=== PATIENT | male | born 1945 | race Caucasian/White ===

== ENCOUNTER 2022-04-15 01:00 | Inpatient (IN) | payer BC ==
[~2022-04-15] VITALS: Ht 152.4 cm; Wt 49.4 kg
[2022-04-15] VITALS (30 sets, daily range): BP systolic 67–162
[2022-04-15 01:51] LABS: BASOPHILS % (AUTO) 0.3 % (0.0-2.0); EOSINOPHILS % (AUTO) 0.1 % (0.0-4.0); LYMPHOCYTES # (AUTO) 1.1 K/uL (1.0-5.5); LYMPHOCYTES % (AUTO) 6.3 % (20.5-51.5); MEAN CORPUSCULAR HEMOGLOBIN 27 pg (27-31); MEAN CORPUSCULAR HGB CONC 32 % (32-36); MEAN CORPUSCULAR VOLUME 86 fL (79.0-98.0); MONOCYTES # (AUTO) 0.5 K/uL (0.0-1.0); MONOCYTES % (AUTO) 2.9 % (1.7-9.3); NEUTROPHILS % (AUTO) 90.4 % (40.0-70.0); PLATELET COUNT (AUTO) 106 K/uL (130-430); RED CELL DISTRIBUTION WIDTH 17.9 % (9.0-15.0); WHITE BLOOD COUNT (AUTO) 17.7 K/uL (4.8-10.8)
[2022-04-15 01:57] LABS: ANION GAP 24 (5-15); CALCIUM 7.9 mg/dL (8.4-11.0); CHLORIDE 87 mmol/L (98-107); CREATININE 2.88 mg/dL (0.55-1.30); GLUCOSE 169 mg/dL (70-99); POTASSIUM 5.4 mmol/L (3.5-5.1); SODIUM SERUM 123 mmol/L (136-145)
[2022-04-15 02:02] LABS: ALANINE AMINOTRANSFERASE 66 U/L (12-78); ALBUMIN 1.3 g/dL (3.4-4.8); ASPARTATE AMINOTRANSFERASE 73 U/L (10-37); TOTAL BILIRUBIN 0.3 mg/dL (0.0-1.0)
[2022-04-15 02:12] LABS: UREA NITROGEN, BLOOD 188 mg/dL (8-21)
[2022-04-15 02:13] LABS: HEMATOCRIT 12.4 % (36-54); HEMOGLOBIN 3.9 g/dL (14.0-18.0); RED BLOOD CELL COUNT(AUTO) 1.45 MIL/uL (4.2-6.2)
[2022-04-15] MEDS ORDERED: NS 500 ML IV ONE ×2 (02:15→03:30)
[2022-04-15 02:16] LABS: INR 1.4 (0.80-1.20); PROTHROMBIN TIME 13.8 SECS (9.5-12.5)
[2022-04-15] MEDS ORDERED: cefTRIAXone 1 GM in D5W 50 ML IV ONE (02:30)
[2022-04-15] MEDS ORDERED: NOREPINEPHRINE 4 MG/4 ML VIAL IV ONE ×3 (03:27→22:34)
[2022-04-15] MEDS ORDERED: NOREPINEPHRINE BITARTRATE 4 MG in NS 246 ML IV ONE (03:30)
[2022-04-15] MEDS ORDERED: cefTRIAXone 1 GM VIAL ONE (03:45)
[2022-04-15] MEDS ORDERED: NALOXONE HCL 0.4 MG/ML AMP (NARCAN) IVP PRN (07:00)
[2022-04-15] MEDS ORDERED: MORPHINE 4 MG INJ. 4 MG/ML VIAL IVP PRN (07:00)
[2022-04-15] MEDS ORDERED: LORazepam 2 MG/ML VIAL IVP PRN (07:00)
[2022-04-15] MEDS ORDERED: MORPHINE 2 MG/ML INJ. SYRINGE IVP PRN (07:00)
[2022-04-15] MEDS ORDERED: ONDANSETRON HCL 4 MG/2 ML VIAL IVP PRN (07:00)
[2022-04-15] MEDS: D5/0.45 NS 1,000 ML IV SCH ×3 (07:53→19:29)
[2022-04-15] MEDS ORDERED: PANTOPRAZOLE SODIUM 40 MG/VIAL (PROTONIX) IVP SCH (09:00)
[2022-04-15] MEDS: CEFEPIME 2 GM in D5W 100 ML IV SCH (13:18)
[2022-04-15] MEDS: metroNIDAZOLE 250 mg/NS 50 ML IV SCH (15:11)
[2022-04-15] MEDS: PANTOPRAZOLE SODIUM 40 MG in NS 50 ML IV SCH ×2 (16:25→19:26)
[2022-04-15] MEDS ORDERED: cefTRIAXone 1 GM IVPB PREMIX 50 ML IV SCH (22:00)
[2022-04-16] VITALS (29 sets, daily range): BP systolic 99–157
[2022-04-16] MEDS: metroNIDAZOLE 250 mg/NS 50 ML IV SCH ×4 (00:26→21:21)
[2022-04-16] MEDS: PANTOPRAZOLE SODIUM 40 MG in NS 50 ML IV SCH ×5 (00:27→20:23)
[2022-04-16] MEDS ORDERED: NOREPINEPHRINE BITARTRATE 4 MG in NS 218 ML IV PRN (00:30)
[2022-04-16] MEDS ORDERED: NOREPINEPHRINE BITARTRATE 4 MG in D5W 246 ML IV PRN (01:00)
[2022-04-16 07:57] LABS: ALANINE AMINOTRANSFERASE 78 U/L (12-78); ALBUMIN 1.3 g/dL (3.4-4.8); ASPARTATE AMINOTRANSFERASE 86 U/L (10-37); CALCIUM 7.8 mg/dL (8.4-11.0); CREATININE 2.75 mg/dL (0.55-1.30); GLUCOSE 242 mg/dL (70-99); PHOSPHORUS 7.1 mg/dL (2.7-4.5); TOTAL BILIRUBIN 0.6 mg/dL (0.0-1.0)
[2022-04-16 08:17] LABS: BASOPHILS % (AUTO) 0.2 % (0.0-2.0); EOSINOPHILS # (AUTO) 0.1 K/uL (0.0-0.4); EOSINOPHILS % (AUTO) 0.6 % (0.0-4.0); LYMPHOCYTES % (AUTO) 5.1 % (20.5-51.5); MEAN CORPUSCULAR HEMOGLOBIN 29 pg (27-31); MEAN CORPUSCULAR HGB CONC 33 % (32-36); MEAN CORPUSCULAR VOLUME 86 fL (79.0-98.0); MONOCYTES # (AUTO) 0.4 K/uL (0.0-1.0); MONOCYTES % (AUTO) 1.8 % (1.7-9.3); NEUTROPHILS # (AUTO) 18.2 K/uL (1.8-7.7); NEUTROPHILS % (AUTO) 92.3 % (40.0-70.0); PLATELET COUNT (AUTO) 62 K/uL (130-430); RED BLOOD CELL COUNT(AUTO) 2.43 MIL/uL (4.2-6.2); RED CELL DISTRIBUTION WIDTH 16.8 % (9.0-15.0); WHITE BLOOD COUNT (AUTO) 19.7 K/uL (4.8-10.8)
[2022-04-16 08:18] LABS: ANION GAP 21 (5-15); CHLORIDE 93 mmol/L (98-107); POTASSIUM 4.6 mmol/L (3.5-5.1); SODIUM SERUM 126 mmol/L (136-145)
[2022-04-16 08:24] LABS: UREA NITROGEN, BLOOD 186 mg/dL (8-21)
[2022-04-16 08:56] LABS: C-REACTIVE PROTEIN QUANT 13.3 mg/dL (0-0.5)
[2022-04-16] MEDS ORDERED: MIDAZOLAM HCL 5 MG/5 ML VIAL ONE (09:33)
[2022-04-16] MEDS ORDERED: fentaNYL CITRATE/PF 100 MCG/2 ML AMP ONE (09:34)
[2022-04-16 09:59] LABS: HEMATOCRIT 20.8 % (36-54); HEMOGLOBIN 6.9 g/dL (14.0-18.0)
[2022-04-16] MEDS ORDERED: NACL 0.9% 1,000 ML IV SCH (10:30)
[2022-04-16] MEDS: CEFEPIME 2 GM in D5W 100 ML IV SCH (10:50)
[2022-04-16] MEDS ORDERED: D5W 1,000 ML IV PRN (11:30)
[2022-04-16] MEDS ORDERED: DEXTROSE 50%-WATER 50 ML DISP.SYRIN IVP PRN (11:30)
[2022-04-16] MEDS ORDERED: GLUCOSE (DEXTROSE) ORAL GEL -Adults PO PRN (11:30)
[2022-04-16 12:11] LABS: ERYTHROCYTE SEDIMENTATION RATE 42 MM/HR (0-15)
[2022-04-16] MEDS: INSULIN REGULAR, HUMAN 100 UNITS/ML, 10 ML VIAL (humuLIN R) SUBCUT PRN ×3 (12:32→23:44)
[2022-04-16 12:38] LABS: HEMATOCRIT 18.7 % (36-54); HEMOGLOBIN 6.3 g/dL (14.0-18.0)
[2022-04-16 14:09] LABS: BILIRUBIN,URINE NEGATIVE (NEGATIVE); BLOOD, URINE 1+ (NEGATIVE); CLARITY/URINE CLEAR (CLEAR); COLOR,URINE YELLOW (YELLOW); GLUCOSE,URINE TRACE (NEGATIVE); KETONES,URINE NEGATIVE (NEGATIVE); LEUKOCYTE ESTERASE ,URINE NEGATIVE (NEGATIVE); NITRITE, URINE NEGATIVE (NEGATIVE); PH,URINE 5.5 (5.0-8.0); PROTEIN URINE 1+ (NEGATIVE); UROBILINOGEN,URINE 0.2 (0.2-1.0)
[2022-04-16 14:41] LABS: BACTERIA,URINE RARE /HPF (None Seen); CALCIUM OXALATE CRYSTALS,UR 0-10 /HPF (None Seen); WBC,URINE 0-3 /HPF (0-3)
[2022-04-16] MEDS ORDERED: MENTHOL/ZINC OXIDE 113 GM OINT. TP PRN (15:45)
[2022-04-16] MEDS ORDERED: BALSAM PERU/CASTOR OIL 56.7 GM OINT...G. TP ONE (17:00)
[2022-04-16] MEDS ORDERED: SODIUM BICARBONATE 8.4% JECT 50 MEQ/50 ML SYRINGE ONE (19:52)
[2022-04-16] MEDS: SODIUM BICARBONATE 8.4% JECT 150 MEQ in D5W 1,000 ML IV SCH (20:18)
[2022-04-17] VITALS (29 sets, daily range): BP systolic 102–139
[2022-04-17] MEDS: PANTOPRAZOLE SODIUM 40 MG in NS 50 ML IV SCH ×5 (01:21→20:04)
[2022-04-17] MEDS: metroNIDAZOLE 250 mg/NS 50 ML IV SCH ×3 (05:45→21:56)
[2022-04-17] MEDS: INSULIN REGULAR, HUMAN 100 UNITS/ML, 10 ML VIAL (humuLIN R) SUBCUT PRN ×4 (05:48→23:32)
[2022-04-17] MEDS ORDERED: SODIUM BICARBONATE 8.4% VIAL 50 MEQ/50 ML VIAL ONE (06:00)
[2022-04-17] MEDS: SODIUM BICARBONATE 8.4% JECT 150 MEQ in D5W 1,000 ML IV SCH ×2 (06:12→18:27)
[2022-04-17 08:08] LABS: BASOPHILS % (AUTO) 0.3 % (0.0-2.0); EOSINOPHILS # (AUTO) 0.1 K/uL (0.0-0.4); EOSINOPHILS % (AUTO) 0.5 % (0.0-4.0); LYMPHOCYTES # (AUTO) 0.6 K/uL (1.0-5.5); LYMPHOCYTES % (AUTO) 5.4 % (20.5-51.5); MEAN CORPUSCULAR HEMOGLOBIN 30 pg (27-31); MEAN CORPUSCULAR HGB CONC 35 % (32-36); MEAN CORPUSCULAR VOLUME 85 fL (79.0-98.0); MONOCYTES # (AUTO) 0.3 K/uL (0.0-1.0); MONOCYTES % (AUTO) 2.8 % (1.7-9.3); RED BLOOD CELL COUNT(AUTO) 2.22 MIL/uL (4.2-6.2); RED CELL DISTRIBUTION WIDTH 15.2 % (9.0-15.0); RETICULOCYTE COUNT 0.8 % (0.5-1.5); WHITE BLOOD COUNT (AUTO) 12.1 K/uL (4.8-10.8)
[2022-04-17] MEDS: BALSAM PERU/CASTOR OIL 56.7 GM OINT...G. TP SCH (08:09)
[2022-04-17 08:18] LABS: ANION GAP 17 (5-15); CALCIUM 7.5 mg/dL (8.4-11.0); CHLORIDE 96 mmol/L (98-107); CREATININE 2.63 mg/dL (0.55-1.30); GLUCOSE 211 mg/dL (70-99); PHOSPHORUS 5.6 mg/dL (2.7-4.5); SODIUM SERUM 129 mmol/L (136-145)
[2022-04-17 08:43] LABS: UREA NITROGEN, BLOOD 193 mg/dL (8-21)
[2022-04-17 09:08] LABS: C-REACTIVE PROTEIN QUANT 12.6 mg/dL (0-0.5)
[2022-04-17 09:14] LABS: HEMATOCRIT 18.8 % (36-54); HEMOGLOBIN 6.6 g/dL (14.0-18.0); PLATELET COUNT (AUTO) 41 K/uL (130-430)
[2022-04-17] MEDS: CEFEPIME 2 GM in D5W 100 ML IV SCH (10:38)
[2022-04-17] MEDS ORDERED: PHYTONADIONE 10 MG in NS 50 ML IV ONE (14:30)
[2022-04-17 15:19] LABS: INR 1.3 (0.80-1.20); PROTHROMBIN TIME 13.3 SECS (9.5-12.5)
[2022-04-17 16:15] LABS: TOTAL IRON BIND. CAPACITY 164 ug/dL (250-450)
[2022-04-18] VITALS (30 sets, daily range): BP systolic 105–133
[2022-04-18] MEDS: PANTOPRAZOLE SODIUM 40 MG in NS 50 ML IV SCH ×5 (02:17→22:32)
[2022-04-18] MEDS: metroNIDAZOLE 250 mg/NS 50 ML IV SCH ×3 (06:07→22:20)
[2022-04-18] MEDS: SODIUM BICARBONATE 8.4% JECT 150 MEQ in D5W 1,000 ML IV SCH ×2 (06:07→20:25)
[2022-04-18 06:46] LABS: BASOPHILS % (AUTO) 0.3 % (0.0-2.0); EOSINOPHILS % (AUTO) 0.3 % (0.0-4.0); HEMATOCRIT 23.6 % (36-54); HEMOGLOBIN 8.1 g/dL (14.0-18.0); LYMPHOCYTES # (AUTO) 0.7 K/uL (1.0-5.5); LYMPHOCYTES % (AUTO) 7.8 % (20.5-51.5); MEAN CORPUSCULAR HEMOGLOBIN 28 pg (27-31); MEAN CORPUSCULAR HGB CONC 34 % (32-36); MONOCYTES # (AUTO) 0.4 K/uL (0.0-1.0); MONOCYTES % (AUTO) 4.3 % (1.7-9.3); NEUTROPHILS # (AUTO) 8.4 K/uL (1.8-7.7); NEUTROPHILS % (AUTO) 87.3 % (40.0-70.0); PLATELET COUNT (AUTO) 55 K/uL (130-430); RED BLOOD CELL COUNT(AUTO) 2.89 MIL/uL (4.2-6.2); RED CELL DISTRIBUTION WIDTH 17.4 % (9.0-15.0); WHITE BLOOD COUNT (AUTO) 9.6 K/uL (4.8-10.8)
[2022-04-18 06:53] LABS: INR 1.3 (0.80-1.20); PROTHROMBIN TIME 12.6 SECS (9.5-12.5)
[2022-04-18] MEDS: INSULIN REGULAR, HUMAN 100 UNITS/ML, 10 ML VIAL (humuLIN R) SUBCUT PRN ×3 (06:53→18:50)
[2022-04-18 07:19] LABS: MEAN CORPUSCULAR VOLUME 82 fL (79.0-98.0)
[2022-04-18] MEDS: BALSAM PERU/CASTOR OIL 56.7 GM OINT...G. TP SCH (09:00)
[2022-04-18] MEDS: CEFEPIME 2 GM in D5W 100 ML IV SCH (11:09)
[2022-04-19] MEDS: INSULIN REGULAR, HUMAN 100 UNITS/ML, 10 ML VIAL (humuLIN R) SUBCUT PRN ×2 (00:14→18:07)
[2022-04-19 01:21] VITALS: BP_SYST 112
[2022-04-19] MEDS: PANTOPRAZOLE SODIUM 40 MG in NS 50 ML IV SCH ×4 (03:57→22:06)
[2022-04-19 04:05] VITALS: BP_SYST 118
[2022-04-19] MEDS: metroNIDAZOLE 250 mg/NS 50 ML IV SCH ×3 (05:25→22:06)
[2022-04-19 07:07] LABS: FOLATE (FOLIC ACID) >20.0 ng/mL (>3.0)
[2022-04-19 07:28] LABS: BASOPHILS % (AUTO) 0.4 % (0.0-2.0); EOSINOPHILS % (AUTO) 0.4 % (0.0-4.0); HEMATOCRIT 23.6 % (36-54); HEMOGLOBIN 8.1 g/dL (14.0-18.0); LYMPHOCYTES # (AUTO) 1.2 K/uL (1.0-5.5); LYMPHOCYTES % (AUTO) 14.9 % (20.5-51.5); MEAN CORPUSCULAR HEMOGLOBIN 28 pg (27-31); MEAN CORPUSCULAR HGB CONC 35 % (32-36); MEAN CORPUSCULAR VOLUME 82 fL (79.0-98.0); MONOCYTES # (AUTO) 0.6 K/uL (0.0-1.0); MONOCYTES % (AUTO) 7.8 % (1.7-9.3); NEUTROPHILS # (AUTO) 6.1 K/uL (1.8-7.7); NEUTROPHILS % (AUTO) 76.5 % (40.0-70.0); RED CELL DISTRIBUTION WIDTH 17.4 % (9.0-15.0)
[2022-04-19 07:35] LABS: ALANINE AMINOTRANSFERASE 50 U/L (12-78); ALBUMIN 1.2 g/dL (3.4-4.8); ANION GAP 11 (5-15); ASPARTATE AMINOTRANSFERASE 60 U/L (10-37); CALCIUM 7.1 mg/dL (8.4-11.0); CHLORIDE 96 mmol/L (98-107); CREATININE 2.46 mg/dL (0.55-1.30); GLUCOSE 145 mg/dL (70-99); POTASSIUM 3.4 mmol/L (3.5-5.1); SODIUM SERUM 134 mmol/L (136-145); TOTAL BILIRUBIN 0.5 mg/dL (0.0-1.0)
[2022-04-19 07:47] LABS: UREA NITROGEN, BLOOD 166 mg/dL (8-21)
[2022-04-19 07:57] VITALS: BP_SYST 123
[2022-04-19] MEDS: BALSAM PERU/CASTOR OIL 56.7 GM OINT...G. TP SCH (09:02)
[2022-04-19] MEDS: SODIUM BICARBONATE 8.4% JECT 150 MEQ in D5W 1,000 ML IV SCH (09:02)
[2022-04-19 09:18] LABS: PLATELET COUNT (AUTO) 43 K/uL (130-430)
[2022-04-19 09:52] LABS: FERRITIN 1372 ng/mL (30-400)
[2022-04-19 11:33] VITALS: BP_SYST 107
[2022-04-19] MEDS ORDERED: KCL 10 mEq in 50 mL (PREMIX) 50 ML IV ONE (12:00)
[2022-04-19 15:57] VITALS: BP_SYST 110
[2022-04-19 20:00] VITALS: BP_SYST 117
[2022-04-20 00:53] VITALS: BP_SYST 119
[2022-04-20] MEDS: PANTOPRAZOLE SODIUM 40 MG in NS 50 ML IV SCH ×5 (02:58→21:09)
[2022-04-20] MEDS: SODIUM BICARBONATE 8.4% JECT 100 MEQ in D5W 1,000 ML IV SCH ×3 (03:02→21:11)
[2022-04-20] MEDS: metroNIDAZOLE 250 mg/NS 50 ML IV SCH ×3 (06:05→21:08)
[2022-04-20 08:13] LABS: BASOPHILS % (AUTO) 0.2 % (0.0-2.0); EOSINOPHILS # (AUTO) 0.1 K/uL (0.0-0.4); EOSINOPHILS % (AUTO) 1.3 % (0.0-4.0); HEMATOCRIT 24.5 % (36-54); HEMOGLOBIN 8.6 g/dL (14.0-18.0); LYMPHOCYTES # (AUTO) 1.7 K/uL (1.0-5.5); LYMPHOCYTES % (AUTO) 18.5 % (20.5-51.5); MEAN CORPUSCULAR HEMOGLOBIN 29 pg (27-31); MEAN CORPUSCULAR HGB CONC 35 % (32-36); MEAN CORPUSCULAR VOLUME 82 fL (79.0-98.0); MONOCYTES # (AUTO) 0.8 K/uL (0.0-1.0); NEUTROPHILS # (AUTO) 6.5 K/uL (1.8-7.7); RED BLOOD CELL COUNT(AUTO) 3.01 MIL/uL (4.2-6.2); RED CELL DISTRIBUTION WIDTH 17.5 % (9.0-15.0); WHITE BLOOD COUNT (AUTO) 9.1 K/uL (4.8-10.8)
[2022-04-20 08:34] LABS: ALANINE AMINOTRANSFERASE 48 U/L (12-78); ALBUMIN 1.2 g/dL (3.4-4.8); ANION GAP 11 (5-15); ASPARTATE AMINOTRANSFERASE 58 U/L (10-37); CALCIUM 7.3 mg/dL (8.4-11.0); CHLORIDE 97 mmol/L (98-107); CREATININE 2.52 mg/dL (0.55-1.30); GLUCOSE 119 mg/dL (70-99); PHOSPHORUS 3.7 mg/dL (2.7-4.5); POTASSIUM 3.4 mmol/L (3.5-5.1); SODIUM SERUM 137 mmol/L (136-145); TOTAL BILIRUBIN 0.6 mg/dL (0.0-1.0)
[2022-04-20 08:41] LABS: UREA NITROGEN, BLOOD 148 mg/dL (8-21)
[2022-04-20 09:10] LABS: PLATELET COUNT (AUTO) 33 K/uL (130-430)
[2022-04-20 09:33] LABS: C-REACTIVE PROTEIN QUANT 10.5 mg/dL (0-0.5)
[2022-04-20] MEDS: BALSAM PERU/CASTOR OIL 56.7 GM OINT...G. TP SCH (10:10)
[2022-04-20] MEDS ORDERED: PRO40 PO (10:26)
[2022-04-20] MEDS ORDERED: COLI150V10 INH (10:26)
[2022-04-20 10:31] LABS: ERYTHROCYTE SEDIMENTATION RATE 54 MM/HR (0-15)
[2022-04-20 11:25] VITALS: BP_SYST 114
[2022-04-20 15:55] VITALS: BP_SYST 112
[2022-04-20] MEDS: INSULIN REGULAR, HUMAN 100 UNITS/ML, 10 ML VIAL (humuLIN R) SUBCUT PRN (18:15)
[2022-04-20 21:25] VITALS: BP_SYST 104
[2022-04-21] VITALS (10 sets, daily range): BP systolic 99–118
[2022-04-21] MEDS: PANTOPRAZOLE SODIUM 40 MG in NS 50 ML IV SCH ×5 (02:06→21:09)
[2022-04-21] MEDS: INSULIN REGULAR, HUMAN 100 UNITS/ML, 10 ML VIAL (humuLIN R) SUBCUT PRN ×3 (02:41→12:30)
[2022-04-21] MEDS: metroNIDAZOLE 250 mg/NS 50 ML IV SCH ×3 (06:41→21:05)
[2022-04-21 06:48] LABS: BASOPHILS % (AUTO) 0.5 % (0.0-2.0); EOSINOPHILS # (AUTO) 0.3 K/uL (0.0-0.4); EOSINOPHILS % (AUTO) 2.5 % (0.0-4.0); HEMATOCRIT 23.3 % (36-54); LYMPHOCYTES # (AUTO) 1.7 K/uL (1.0-5.5); LYMPHOCYTES % (AUTO) 16.8 % (20.5-51.5); MEAN CORPUSCULAR HEMOGLOBIN 29 pg (27-31); MEAN CORPUSCULAR HGB CONC 35 % (32-36); MEAN CORPUSCULAR VOLUME 83 fL (79.0-98.0); MONOCYTES # (AUTO) 0.8 K/uL (0.0-1.0); MONOCYTES % (AUTO) 7.7 % (1.7-9.3); NEUTROPHILS # (AUTO) 7.4 K/uL (1.8-7.7); NEUTROPHILS % (AUTO) 72.5 % (40.0-70.0); RED BLOOD CELL COUNT(AUTO) 2.83 MIL/uL (4.2-6.2); RED CELL DISTRIBUTION WIDTH 17.1 % (9.0-15.0); WHITE BLOOD COUNT (AUTO) 10.2 K/uL (4.8-10.8)
[2022-04-21 07:04] LABS: ALANINE AMINOTRANSFERASE 41 U/L (12-78); ANION GAP 7 (5-15); ASPARTATE AMINOTRANSFERASE 52 U/L (10-37); C-REACTIVE PROTEIN QUANT 11.3 mg/dL (0-0.5); CALCIUM 7.5 mg/dL (8.4-11.0); CHLORIDE 96 mmol/L (98-107); CREATININE 2.41 mg/dL (0.55-1.30); GLUCOSE 214 mg/dL (70-99); PHOSPHORUS 2.9 mg/dL (2.7-4.5); POTASSIUM 3.1 mmol/L (3.5-5.1); SODIUM SERUM 132 mmol/L (136-145); TOTAL BILIRUBIN 0.6 mg/dL (0.0-1.0)
[2022-04-21] MEDS ORDERED: metroNIDAZOLE 500 mg/NS 100 ML IV ONE (07:04)
[2022-04-21 07:12] LABS: UREA NITROGEN, BLOOD 136 mg/dL (8-21)
[2022-04-21 07:26] LABS: PLATELET COUNT (AUTO) 28 K/uL (130-430)
[2022-04-21 08:15] LABS: ERYTHROCYTE SEDIMENTATION RATE 65 MM/HR (0-15)
[2022-04-21] MEDS: BALSAM PERU/CASTOR OIL 56.7 GM OINT...G. TP SCH (09:40)
[2022-04-21] MEDS ORDERED: POTASSIUM CHLORIDE 20 MEQ TAB.PRT.SR GT ONE (10:15)
[2022-04-22] VITALS (11 sets, daily range): BP systolic 91–120
[2022-04-22] MEDS: PANTOPRAZOLE SODIUM 40 MG in NS 50 ML IV SCH ×5 (01:02→21:49)
[2022-04-22] MEDS: metroNIDAZOLE 250 mg/NS 50 ML IV SCH (06:17)
[2022-04-22] MEDS: INSULIN REGULAR, HUMAN 100 UNITS/ML, 10 ML VIAL (humuLIN R) SUBCUT PRN ×3 (06:21→17:52)
[2022-04-22 07:16] LABS: BASOPHILS # (AUTO) 0.1 K/uL (0.0-0.2); BASOPHILS % (AUTO) 0.4 % (0.0-2.0); EOSINOPHILS # (AUTO) 0.5 K/uL (0.0-0.4); EOSINOPHILS % (AUTO) 3.3 % (0.0-4.0); HEMOGLOBIN 7.4 g/dL (14.0-18.0); LYMPHOCYTES # (AUTO) 1.9 K/uL (1.0-5.5); LYMPHOCYTES % (AUTO) 13.6 % (20.5-51.5); MEAN CORPUSCULAR HEMOGLOBIN 28 pg (27-31); MEAN CORPUSCULAR HGB CONC 34 % (32-36); MEAN CORPUSCULAR VOLUME 83 fL (79.0-98.0); MONOCYTES # (AUTO) 0.8 K/uL (0.0-1.0); NEUTROPHILS # (AUTO) 10.5 K/uL (1.8-7.7); NEUTROPHILS % (AUTO) 76.7 % (40.0-70.0); RED BLOOD CELL COUNT(AUTO) 2.63 MIL/uL (4.2-6.2); RED CELL DISTRIBUTION WIDTH 17.2 % (9.0-15.0); WHITE BLOOD COUNT (AUTO) 13.7 K/uL (4.8-10.8)
[2022-04-22] MEDS: COLISTIMETHATE SODIUM 150 MG VIAL INH SCH (08:02)
[2022-04-22 08:38] LABS: ANION GAP 8 (5-15); CHLORIDE 101 mmol/L (98-107); CREATININE 2.38 mg/dL (0.55-1.30); GLUCOSE 167 mg/dL (70-99); PHOSPHORUS 2.5 mg/dL (2.7-4.5); SODIUM SERUM 138 mmol/L (136-145)
[2022-04-22 08:44] LABS: UREA NITROGEN, BLOOD 114 mg/dL (8-21)
[2022-04-22 08:45] LABS: HEMATOCRIT 21.7 % (36-54); PLATELET COUNT (AUTO) 19 K/uL (130-430)
[2022-04-22 08:47] LABS: C-REACTIVE PROTEIN QUANT 10.1 mg/dL (0-0.5)
[2022-04-22 10:32] LABS: ERYTHROCYTE SEDIMENTATION RATE 63 MM/HR (0-15)
[2022-04-22] MEDS ORDERED: MORPHINE 4 MG INJ. 4 MG/ML VIAL IVP SCH (12:00)
[2022-04-22] MEDS: BALSAM PERU/CASTOR OIL 56.7 GM OINT...G. TP SCH (12:30)
[2022-04-22] MEDS ORDERED: TIGECYCLINE 100 MG in NS 100 ML IV ONE (13:00)
[2022-04-22] MEDS ORDERED: MORPHINE SULFATE IN 0.9 % NACL 100 ML IV PRN (15:00)
[2022-04-22] MEDS: DEXAMETHASONE SOD PHOSPHATE 4 MG/ML VIAL IVP SCH (17:48)
[2022-04-22] MEDS: TIGECYCLINE 50 MG in NS 100 ML IV SCH (21:50)
[2022-04-23] VITALS (8 sets, daily range): BP systolic 80–112
[2022-04-23] MEDS: DEXAMETHASONE SOD PHOSPHATE 4 MG/ML VIAL IVP SCH ×2 (02:26→07:21)
[2022-04-23] MEDS: PANTOPRAZOLE SODIUM 40 MG in NS 50 ML IV SCH ×2 (02:26→07:21)
[2022-04-23] MEDS: INSULIN REGULAR, HUMAN 100 UNITS/ML, 10 ML VIAL (humuLIN R) SUBCUT PRN ×4 (07:22→23:36)
[2022-04-23] MEDS: COLISTIMETHATE SODIUM 150 MG VIAL INH SCH (07:44)
[2022-04-23 08:04] LABS: BASOPHILS % (AUTO) 0.2 % (0.0-2.0); HEMATOCRIT 22.7 % (36-54); HEMOGLOBIN 7.6 g/dL (14.0-18.0); LYMPHOCYTES # (AUTO) 1.6 K/uL (1.0-5.5); LYMPHOCYTES % (AUTO) 7.6 % (20.5-51.5); MEAN CORPUSCULAR HEMOGLOBIN 28 pg (27-31); MEAN CORPUSCULAR HGB CONC 33 % (32-36); MEAN CORPUSCULAR VOLUME 84 fL (79.0-98.0); MONOCYTES # (AUTO) 0.2 K/uL (0.0-1.0); MONOCYTES % (AUTO) 0.9 % (1.7-9.3); NEUTROPHILS # (AUTO) 18.6 K/uL (1.8-7.7); RED BLOOD CELL COUNT(AUTO) 2.72 MIL/uL (4.2-6.2); RED CELL DISTRIBUTION WIDTH 17.5 % (9.0-15.0); WHITE BLOOD COUNT (AUTO) 20.4 K/uL (4.8-10.8)
[2022-04-23 08:18] LABS: PLATELET COUNT (AUTO) 15 K/uL (130-430)
[2022-04-23] MEDS: TIGECYCLINE 50 MG in NS 100 ML IV SCH (08:55)
[2022-04-23] MEDS: BALSAM PERU/CASTOR OIL 56.7 GM OINT...G. TP SCH (08:56)
[2022-04-23 13:10] LABS: NEUTROPHILS % (AUTO) 91.3 % (40.0-70.0)
[2022-04-24 01:14] VITALS: BP_SYST 91
[2022-04-24 06:35] LABS: MEAN CORPUSCULAR HEMOGLOBIN 28 pg (27-31); MEAN CORPUSCULAR HGB CONC 33 % (32-36); MEAN CORPUSCULAR VOLUME 84 fL (79.0-98.0); RED BLOOD CELL COUNT(AUTO) 2.46 MIL/uL (4.2-6.2); RED CELL DISTRIBUTION WIDTH 18.1 % (9.0-15.0)
[2022-04-24] MEDS: INSULIN REGULAR, HUMAN 100 UNITS/ML, 10 ML VIAL (humuLIN R) SUBCUT PRN ×3 (06:45→18:16)
[2022-04-24 08:15] VITALS: BP_SYST 91
[2022-04-24 09:37] LABS: HEMATOCRIT 20.7 % (36-54); HEMOGLOBIN 6.8 g/dL (14.0-18.0); PLATELET COUNT (AUTO) 40 K/uL (130-430); WHITE BLOOD COUNT (AUTO) 31.9 K/uL (4.8-10.8)
[2022-04-24] MEDS: BALSAM PERU/CASTOR OIL 56.7 GM OINT...G. TP SCH (10:43)
[2022-04-24 11:18] VITALS: BP_SYST 94
[2022-04-24 12:53] LABS: BAND % (MANUAL) 3 % (0-6); BASOPHILS % (MANUAL) 0 % (0-2); EOSINOPHILS % (MANUAL) 0 % (0-7); LYMPHOCYTES % (MANUAL) 5 % (20-46); MONOCYTES % (MANUAL) 2 % (0-11)
[2022-04-24 16:28] VITALS: BP_SYST 96
== END 2022-04-24 19:10 | DRG 720 ==
LOC: SED 01:00 → SIC 03:54 → STU 04-18 19:30 → SMU 04-23 11:02
PROVIDERS: ADMIT Preventive Medicine Preventive Medicine/Occupational Environmental Medicine; ATTEND Preventive Medicine Preventive Medicine/Occupational Environmental Medicine
PROC: 30233N1 Transfusion of Nonautologous Red Blood Cells into Peripheral Vein, Percutaneous Approach (ICD-10-PCS; principal; 2022-04-15)
PROC: 5A1955Z Respiratory Ventilation, Greater than 96 Consecutive Hours (ICD-10-PCS; 2022-04-15)
PROC: 0DB78ZX Excision of Stomach, Pylorus, Via Natural or Artificial Opening Endoscopic, Diagnostic (ICD-10-PCS; 2022-04-16)
PROC: 0W3P8ZZ Control Bleeding in Gastrointestinal Tract, Via Natural or Artificial Opening Endoscopic (ICD-10-PCS; 2022-04-16)
PROC: 30233R1 Transfusion of Nonautologous Platelets into Peripheral Vein, Percutaneous Approach (ICD-10-PCS; 2022-04-17)
DX: A41.9 Sepsis, unspecified organism (principal); N17.0 Acute kidney failure with tubular necrosis; J96.21 Acute and chronic respiratory failure with hypoxia; R65.21 Severe sepsis with septic shock; E43 Unspecified severe protein-calorie malnutrition; K25.4 Chronic or unspecified gastric ulcer with hemorrhage; K29.81 Duodenitis with bleeding; D69.6 Thrombocytopenia, unspecified; D68.9 Coagulation defect, unspecified; G93.1 Anoxic brain damage, not elsewhere classified; J15.9 Unspecified bacterial pneumonia; E83.39 Other disorders of phosphorus metabolism; E83.41 Hypermagnesemia; E83.51 Hypocalcemia; E87.1 Hypo-osmolality and hyponatremia; D64.9 Anemia, unspecified; E87.5 Hyperkalemia; E03.9 Hypothyroidism, unspecified; E83.52 Hypercalcemia; I25.10 Atherosclerotic heart disease of native coronary artery without angina pectoris; Z66 Do not resuscitate; E88.09 Other disorders of plasma-protein metabolism, not elsewhere classified; R74.01 Elevation of levels of liver transaminase levels; I48.91 Unspecified atrial fibrillation; Y95 Nosocomial condition; N50.89 Other specified disorders of the male genital organs; Z20.822 Contact with and (suspected) exposure to COVID-19; E11.65 Type 2 diabetes mellitus with hyperglycemia; E83.42 Hypomagnesemia; E87.6 Hypokalemia; J90 Pleural effusion, not elsewhere classified; L89.90 Pressure ulcer of unspecified site, unspecified stage; R13.10 Dysphagia, unspecified; I12.9 Hypertensive chronic kidney disease with stage 1 through stage 4 chronic kidney disease, or unspecified chronic kidney disease; E11.22 Type 2 diabetes mellitus with diabetic chronic kidney disease; N18.9 Chronic kidney disease, unspecified; Z93.0 Tracheostomy status; Z99.11 Dependence on respirator [ventilator] status; Z86.73 Personal history of transient ischemic attack (TIA), and cerebral infarction without residual deficits; Z89.512 Acquired absence of left leg below knee; Z86.74 Personal history of sudden cardiac arrest
CPT/HCPCS: 36415; 36430; 43239; 71045; 76700-TC; 76870-TC; 80048; 80053; 80074; 81000; 82272; 82607; 82728; 82746; 82962; 83051; 83540; 83550; 83605; 83735; 84100; 85007; 85014; 85025; 85027; 85044; 85384; 85610-TC; 85651-TC; 85730-TC; 86022; 86140; 86886; 86900; 86901; 86920; 87040; 87070-TC; 87081; 87086; 87205-TC; 88305; 88312; 88313; 94002; 94003; 94640; 94760; 96365; 99285; C9113; G0378; J0692; J0696; J0770; J1100; J1815; J2250; J2270; J3010; J3243; J3430; J3480; J3490; J7060; P9021; P9034